=== PATIENT | male | born 1945 | race Two or more races ===

== ENCOUNTER → 2022-04-24 | Outpatient (CLI) | payer MEDICARE, OTHER ==
[2022-04-24 09:33] LABS: Albumin 4.3 g/dL (3.4-5.0); Calcium 9.3 mg/dL (8.5-10.1); Potassium 4.1 mmol/L (3.5-5.1)
[2022-04-24 09:34] LABS: Urine Blood Negative /uL (Negative); Urine Specific Gravity 1.015 (1.001-1.035)
[2022-04-24 09:38] LABS: BUN/Creatinine Ratio 12.1; Bilirubin, Total 0.5 mg/dL (0.2-1.0); Total Protein 7.6 g/dL (6.4-8.2)
[2022-04-24 09:41] LABS: Basophils # (auto) 0 10 ^3/uL (0-0.2); Basophils % (auto) 0.5 % (0.0-2.0); Eosinophils # (auto) 0.2 10 ^3/uL (0-0.8); Eosinophils % (auto) 1.9 % (0.0-7.0); Hematocrit 41.2 % (41.0-53.0); Hemoglobin 13.8 g/dL (13.5-17.5); Lymphocytes # (auto) 1.8 10 ^3/uL (0.4-5.4); Lymphocytes % (auto) 17.9 % (10.0-50.0); Mean Corpuscular Hemoglobin 32.1 pg (28.0-32.0); Mean Corpuscular Hgb Conc. 33.4 g/dL (32.0-36.0); Mean Corpuscular Volume 95.9 fL (80.0-100.0); Monocytes # (auto) 0.6 10 ^3/uL (0-1.3); Monocytes % (auto) 5.6 % (0.0-12.0); Neutrophils # (auto) 7.3 10 ^3/uL (1.6-8.6); Neutrophils % (auto) 74.1 % (37.0-80.0); Red Cell Distribution Width 14.8 % (11.8-14.3); White Blood Cell 9.8 10^3/uL (4.4-10.8)
[2022-04-24 09:57] LABS: Free T4 (Free Thyroxine) 0.9 ng/dL (0.89-1.76); Prostate Specific Antigen 3.02 ng/mL (0.0-4.0)
== END | disposition home or self-care (01) ==
LOC: LAB 08:11
PROVIDERS: ATTEND Internal Medicine Cardiovascular Disease
DX: C61 Malignant neoplasm of prostate (principal); I10 Essential (primary) hypertension; D51.3 Other dietary vitamin B12 deficiency anemia; E55.9 Vitamin D deficiency, unspecified; E11.9 Type 2 diabetes mellitus without complications; R00.2 Palpitations; D64.9 Anemia, unspecified; R53.1 Weakness; R30.0 Dysuria
CPT/HCPCS: 36415; 80053; 80061; 81003; 82306; 82607; 83036; 84153; 84403; 84439; 84443; 85025

== ENCOUNTER → 2022-04-28 | Outpatient (CLI) | payer MEDICARE, OTHER ==
[~2022-04-28] VITALS: Ht 172.7 cm; Wt 108.9 kg
== END | disposition home or self-care (01) ==
LOC: Rad HDHVI 08:17
PROVIDERS: ATTEND Internal Medicine Cardiovascular Disease
DX: I11.0 Hypertensive heart disease with heart failure (principal); I50.9 Heart failure, unspecified; R07.9 Chest pain, unspecified; R06.02 Shortness of breath
CPT/HCPCS: 78452; 93017; 96374; A9500

== ENCOUNTER → 2022-04-30 | Outpatient (CLI) | payer MEDICARE, OTHER | END | disposition home or self-care (01) | LOC: Rad HDHVI 12:54 | PROVIDERS: ATTEND Internal Medicine Cardiovascular Disease | DX: I08.2 Rheumatic disorders of both aortic and tricuspid valves (principal); I50.9 Heart failure, unspecified | CPT/HCPCS: 93306 ==

== ENCOUNTER → 2022-06-15 | Outpatient (CLI) | payer MEDICARE, OTHER ==
[~2022-06-15] MED LIST: AMLO-489 PO; LOSA-39 PO; POTA10TA51 PO; TORS20TA20 PO
[2022-06-15 11:00] VITALS: BP 166/77
[2022-06-15 11:30] VITALS: BP 159/85
== END | disposition home or self-care (01) ==
LOC: Rad HDHVI 10:38
PROVIDERS: ATTEND Internal Medicine Cardiovascular Disease
DX: Z01.818 Encounter for other preprocedural examination (principal); R07.9 Chest pain, unspecified
CPT/HCPCS: 71046; 93005; G0463

== ENCOUNTER 2022-06-18 07:08 | Day surgery (SDC) | payer MEDICARE, OTHER ==
[2022-06-15 13:15] LABS: Basophils # (auto) 0.1 10 ^3/uL (0-0.2); Basophils % (auto) 0.7 % (0.0-2.0); Eosinophils # (auto) 0.2 10 ^3/uL (0-0.8); Hematocrit 40.5 % (41.0-53.0); Hemoglobin 13.5 g/dL (13.5-17.5); Lymphocytes # (auto) 2.4 10 ^3/uL (0.4-5.4); Lymphocytes % (auto) 24.2 % (10.0-50.0); Mean Corpuscular Hemoglobin 31.9 pg (28.0-32.0); Mean Corpuscular Hgb Conc. 33.4 g/dL (32.0-36.0); Mean Corpuscular Volume 95.7 fL (80.0-100.0); Monocytes # (auto) 0.7 10 ^3/uL (0-1.3); Monocytes % (auto) 7.3 % (0.0-12.0); Neutrophils # (auto) 6.6 10 ^3/uL (1.6-8.6); Neutrophils % (auto) 65.8 % (37.0-80.0); Nucleated Red Blood Cells % 0.3 %; Red Blood Cells 4.23 10^6/uL (4.5-5.90); Red Cell Distribution Width 14.7 % (11.8-14.3)
[2022-06-15 13:32] LABS: INR 1.07 (0.9-1.15); Partial Thromboplastin Time 25.9 sec (24.6-33.4)
[2022-06-15 13:43] LABS: Potassium 4.3 mmol/L (3.5-5.1)
[2022-06-15 13:47] LABS: BUN/Creatinine Ratio 9.2 (10.0-20.0); Calcium 9.3 mg/dL (8.5-10.1)
[2022-06-18] VITALS (8 sets, daily range): BP systolic 120–160; BP diastolic 66–94
[~2022-06-18] VITALS: Ht 172.7 cm; Wt 117.9 kg
[2022-06-18] MEDS ORDERED: fentaNYL CITRATE 100 MCG/2 ML VL ONE (13:23)
[2022-06-18] MEDS ORDERED: ANGIOMAX 250 MG VIAL IV ONE (13:23)
[2022-06-18] MEDS ORDERED: SODIUM CHL 0.9% 0 ML ONE (13:24)
[2022-06-18] MEDS ORDERED: MIDAZOLAM HCL 2MG/2ML 2ml VIAL (1mg/ml) ONE (13:24)
[2022-06-18] MEDS ORDERED: LIDOCAINE 2%HCL (LOCAL ANESTH.) INJ 10ml MDV ONE (13:24)
[2022-06-18] MEDS ORDERED: IOHEXOL 350 MG/ML 100ML IJ ONE (13:38)
[2022-06-18] MEDS ORDERED: ATROPINE SULF 1 MG/10ml SYR ONE (14:09)
[2022-06-18] MEDS ORDERED: NITROGLYCERIN 0.4MG/DOSE SPRAY 4.9GM ONE (14:12)
[2022-06-18] MEDS ORDERED: SODIUM CHLORIDE 0.9% 1,000 ML IV SCH (14:45)
[2022-06-18] MEDS ORDERED: TICAGRELOR 60 MG TAB PO SCH (22:00)
[2022-06-19] MEDS ORDERED: ISOSORBIDE MONONITRATE ER 60 MG TAB PO SCH (10:00)
== END 2022-06-18 16:45 | disposition home or self-care (01) ==
LOC: CATH 07:08
PROVIDERS: ATTEND Internal Medicine Cardiovascular Disease
DX: I25.10 Atherosclerotic heart disease of native coronary artery without angina pectoris (principal); R94.39 Abnormal result of other cardiovascular function study; I10 Essential (primary) hypertension; E78.5 Hyperlipidemia, unspecified; E66.01 Morbid (severe) obesity due to excess calories; Z98.890 Other specified postprocedural states; Z79.899 Other long term (current) drug therapy; Z20.822 Contact with and (suspected) exposure to COVID-19
CPT/HCPCS: 36415; 80048; 85025; 85610; 85730; 93458; C1894; J1644; J2001; J2250; J3010; Q9967; U0003

== ENCOUNTER → 2022-07-01 | Outpatient (CLI) | payer MEDICARE, OTHER | END | disposition home or self-care (01) | LOC: Rad HDHVI 13:51 | PROVIDERS: ATTEND Internal Medicine Cardiovascular Disease | DX: I65.22 Occlusion and stenosis of left carotid artery (principal); I10 Essential (primary) hypertension | CPT/HCPCS: 93880 ==

== ENCOUNTER → 2022-08-26 | Outpatient (CLI) | payer MEDICARE, OTHER ==
[~2022-08-26] MED LIST changes: -AMLO-489 PO; +AMLO1TAB22 PO; -LOSA-39 PO; +LOSA100T58 PO
== END | disposition home or self-care (01) ==
LOC: Rad HDHVI 08:58
PROVIDERS: ATTEND Internal Medicine Cardiovascular Disease
DX: I35.8 Other nonrheumatic aortic valve disorders (principal); R00.2 Palpitations; I10 Essential (primary) hypertension
CPT/HCPCS: 93306

== ENCOUNTER → 2024-06-12 | Outpatient (CLI) | payer MEDICARE, OTHER ==
[~2024-06-12] MED LIST changes: +AMIO200T33 PO; +B-COTAB19 PO; +BUME1TAB3 PO; +CHOL100079 OR; +CLOP75TA70 PO; +ISOS1TAB28 PO; +LOSA-535 PO; -LOSA100T58 PO; +POM PO; +POTA-36 PO; -POTA10TA51 PO; +VERI2.5T PO
[2024-06-12 10:06] VITALS: BP 119/72; PULSE 68; RESP 18; O2SAT 95
[2024-06-12 10:31] VITALS: BP 122/69; PULSE 66; RESP 18; O2SAT 95
--- NOTE | 2024-06-12 12:26 | DVH ---
XY CHEST TWO VIEWS ROUTINE, HISTORY: PRE OP COMPARISON: XY CHEST TWO VIEWS ROUTINE on DOS: 06/15/22 XY CHEST TWO VIEWS ROUTINE on DOS: 06/15/22 TECHNICAL DATA: 2 view of the chest was obtained. FINDINGS: Lines and tubes: None Cardiomediastinal silhouette: normal Pulmonary vasculature: normal Lung expansion: normal Lung airspace: normal Lung interstitium: normal Pleura: normal Pneumothorax: no Bones: Unremarkable Other: no IMPRESSION: No acute intrathoracic abnormality.
== END | disposition home or self-care (01) ==
LOC: Rad HDHVI 10:00
PROVIDERS: ATTEND Internal Medicine Cardiovascular Disease
DX: Z01.818 Encounter for other preprocedural examination (principal); I45.10 Unspecified right bundle-branch block; I73.9 Peripheral vascular disease, unspecified
CPT/HCPCS: 71046; 93005; G0463

== ENCOUNTER → 2024-06-12 | Outpatient (CLI) | payer MEDICARE, OTHER ==
[2024-06-12 12:44] LABS: Basophils # (auto) 0.1 10 ^3/uL (0-0.2); Eosinophils # (auto) 0 10 ^3/uL (0-0.8); Eosinophils % (auto) 0.4 % (0.0-7.0); Hemoglobin 13.7 g/dL (13.5-17.5); Lymphocytes # (auto) 1.3 10 ^3/uL (0.4-5.4); Mean Corpuscular Hgb Conc. 34.4 g/dL (32.0-36.0); Neutrophils # (auto) 7.3 10 ^3/uL (1.6-8.6); Nucleated Red Blood Cells % 0.2 %; White Blood Cell 9.3 10^3/uL (4.4-10.8)
[2024-06-12 12:46] LABS: Basophils % (auto) 0.8 % (0.0-2.0); Hematocrit 39.9 % (41.0-53.0); Lymphocytes % (auto) 13.8 % (10.0-50.0); Mean Corpuscular Hemoglobin 34.7 pg (28.0-32.0); Mean Corpuscular Volume 100.9 fL (80.0-100.0); Monocytes # (auto) 0.6 10 ^3/uL (0-1.3); Monocytes % (auto) 6.5 % (0.0-12.0); Neutrophils % (auto) 78.5 % (37.0-80.0); Platelet Count (auto) 275 10^3/uL (140-450); Red Blood Cells 3.95 10^6/uL (4.5-5.90); Red Cell Distribution Width 16.5 % (11.8-14.3)
[2024-06-12 12:55] LABS: Potassium 3.6 mmol/L (3.5-5.1); Sodium 139 mmol/L (136-145)
[2024-06-12 12:56] LABS: Anion Gap 11 (5-15); Carbon Dioxide 21 mmol/L (20-31)
[2024-06-12 12:57] LABS: Calcium 9.6 mg/dL (8.7-10.4)
[2024-06-12 13:01] LABS: INR 1.07 (0.9-1.15); Partial Thromboplastin Time 24.6 SEC (24.5-34.5); Prothrombin Time 11.3 sec (9.3-11.8)
[2024-06-12 13:02] LABS: BUN/Creatinine Ratio 9.4 (10.0-20.0); Blood Urea Nitrogen 19 mg/dL (9-23)
[2024-06-12 13:03] LABS: Chloride 107 mmol/L (98-107); Glucose 129 mg/dL (74-106)
== END | disposition home or self-care (01) ==
LOC: LAB 12:14
PROVIDERS: ATTEND Internal Medicine Cardiovascular Disease
DX: Z01.812 Encounter for preprocedural laboratory examination (principal); R79.1 Abnormal coagulation profile
CPT/HCPCS: 36415; 80048; 85025; 85610; 85730

== ENCOUNTER 2024-06-15 06:57 | Day surgery (SDC) | payer MEDICARE, OTHER ==
[2024-06-15] VITALS (7 sets, daily range): BP systolic 122–147; BP diastolic 54–71; PULSE 47–51; RESP 12–14; TEMP 98.1; O2SAT 95–98
[~2024-06-15] VITALS: Ht 172.7 cm; Wt 98.0 kg
[~2024-06-15 06:57] MED LIST changes: -AMLO1TAB22 PO; -LOSA-535 PO; -POTA-36 PO; -TORS20TA20 PO
[2024-06-15] MEDS ORDERED: HEPARIN IN NS 1000Units/500mL 1,500 ML ONE (07:23)
[2024-06-15] MEDS ORDERED: IOHEXOL 350 MG/ML 100ML IJ ONE (07:24)
[2024-06-15] MEDS ORDERED: ANGIOMAX 250 MG VIAL IV ONE (07:53)
[2024-06-15] MEDS ORDERED: fentaNYL CITRATE 100 MCG/2 ML VL ONE (07:54)
[2024-06-15] MEDS ORDERED: SODIUM CHL 0.9% 0 ML ONE (07:54)
[2024-06-15] MEDS ORDERED: MIDAZOLAM HCL 2MG/2ML 2ml VIAL (1mg/ml) ONE (07:54)
[2024-06-15] MEDS ORDERED: LIDOCAINE 2%HCL (LOCAL ANESTH.) INJ 20ML MDV ONE (07:55)
[2024-06-15] MEDS ORDERED: IODIXANOL 320MG/ML 100ML BTL IV ONE (08:56)
--- NOTE | 2024-06-15 09:11 | DVHOP ---
DATE OF SURGERY: 06/15/2024 PROCEDURES PERFORMED: Selective left and right lower extremity angiography. Conscious sedation. INDICATIONS: The patient with claudication symptoms affecting his left leg more so than the right leg. The patient is now to undergo bilateral lower extremity angiography. Risks and benefits were explained to the patient. DESCRIPTION OF PROCEDURE: The patient was prepped and draped in a sterile condition. Then, 1% Xylocaine was used to anesthetize the right groin. Using a Cook needle, right femoral artery was engaged with Seldinger technique, a 6-Mauritian sheath in the right femoral artery. Using 6-Mauritian sheath, angiography of right lower extremity was performed. Then, using the contralateral approach, using a RIM catheter and angled Terumo wire, we got into the left lower extremity. Angiography of left lower extremity was performed. Catheter was placed in the distal left popliteal for evaluation of tibioperoneal trunk of the left lower extremity. There were no complications. The patient tolerated the procedure well. Visipaque was used because creatinine was elevated. Volume hydration was given. Total contrast used was 30 mL of Visipaque. RESULTS: * Left and right iliac without any flow restrictive lesion. * Left and right common femoral without any flow restrictive lesion. * Left and right profunda without flow restrictive lesion. * Left and right superficial femoral, popliteal without any flow restrictive lesion. * Left and right tibioperoneal trunk, including the anterior tibial, posterior tibial and the peroneal arteries were all patent, with small vessel disease, sluggish flow throughout. Otherwise, no restrictive lesions were noted. At this time, conservative medical management should be implemented. The patient may benefit from anticoagulation and antiplatelet agent because of slow flow phenomena and also a vasodilatory meds such as Verquvo may also be helpful. Tyler Carbajal MD [facility] TID: [id number] RECEIPT: [id number]
--- NOTE | 2024-06-15 09:15 | DVHHP ---
ADMIT DATE: 06/15/2024 HISTORY OF PRESENT ILLNESS: The patient who is 79 years old with: * History of organic heart disease. A. Hypertension B. Coronary artery disease. C. The patient with history of atrial fibrillation, hypercoagulable state, currently on amiodarone. * D. Anticoagulation because of hypercoagulable state. * Severe osteoarthritis, with multiple joint replacement. * Hypertension. * Hyperlipidemia. The patient at this time with claudication symptoms, now scheduled to undergo lower extremity angiography. Risks and benefits were explained to the patient. The patient understands and agrees. The patient denies any fever or chills, melena, hematochezia, hematemesis, hemoptysis, hematuria. No bleeding diathesis. The patient denies any recent trauma. No fever. Denies any inflammatory bowel disease or irritable bowel syndrome. Denies any history of rheumatologic disorder such as rheumatoid arthritis, lupus or any other connective tissue disease. Denies any diarrhea. No constipation at this time. No history of inflammatory bowel disease or irritable bowel syndrome. PHYSICAL EXAMINATION: VITAL SIGNS: Blood pressure is 122/84, pulse of 60 and regular, O2 saturation 98%. HEENT: Pupils are reactive. Funduscopic exam shows no AV nicking, no exudates, no papilledema. Sclerae are anicteric. NECK: No JVD appreciated. Carotid pulses are 2+ symmetrical. PULMONARY: Clear to auscultation. CARDIOVASCULAR: Regular rate without S3, without S4. PMI is not displaced. ABDOMEN: Soft, nontender, normal bowel sounds. SKIN: Unremarkable. EXTREMITIES: Unremarkable except for diminished bilaterally Doppler pulses. ASSESSMENT AND PLAN: The patient is now scheduled to undergo lower extremity angiography. We will make further recommendations after the angiogram. Furthermore, the patient has renal insufficiency, stage III renal failure. IV fluid hydration. Minimal dye will be used. The patient will receive Visipaque. Tyler Carbajal MD [facility] TID: [id number] RECEIPT: [id number]
--- NOTE | 2024-06-15 09:16 | DVHDS ---
DATE OF DISCHARGE: 06/15/2024 DISCHARGE DIAGNOSES: The patient with claudication symptoms. Peripheral angiography failed to show any restrictive lesions noted in both lower extremities. HOSPITAL COURSE: The patient had patent flow throughout. However, the patient's flow was very sluggish, consistent with small vessel disease and large caliber nature of the vessel. At this time, vasodilatory meds may be helpful in this patient in terms of claudication symptoms. The patient with small vessel disease and furthermore the patient may have endothelial dysfunction. Antiplatelet therapy may also be beneficial. We will continue to follow the patient. Stable at the time of discharge. DISPOSITION: Home. ACTIVITY: As instructed. DIET: Will be 2 gram sodium diet. Tyler Carbajal MD [facility] TID: [id number] RECEIPT: [id number]
[2024-06-15] MEDS ORDERED: SODIUM CHLORIDE 0.9% 1,000 ML IV SCH (10:15)
== END 2024-06-15 11:14 | disposition home or self-care (01) ==
LOC: CATH 06:57
PROVIDERS: ATTEND Internal Medicine Cardiovascular Disease
DX: I70.223 Atherosclerosis of native arteries of extremities with rest pain, bilateral legs (principal); I25.10 Atherosclerotic heart disease of native coronary artery without angina pectoris; I48.91 Unspecified atrial fibrillation; I12.9 Hypertensive chronic kidney disease with stage 1 through stage 4 chronic kidney disease, or unspecified chronic kidney disease; N18.30 Chronic kidney disease, stage 3 unspecified; E78.5 Hyperlipidemia, unspecified; M19.90 Unspecified osteoarthritis, unspecified site; Z79.899 Other long term (current) drug therapy; Z79.01 Long term (current) use of anticoagulants
CPT/HCPCS: 36246; 75716; C1760; C1769; C1887; C1894; J1644; J2250; J3010; J7030; Q9967; 99152

== ENCOUNTER → 2024-12-13 | Outpatient (CLI) | payer MEDICARE, OTHER ==
--- NOTE | 2024-12-14 08:30 | DVHSR ---
APPROVED REPORT EXAM: Two-dimensional and M-mode echocardiogram with Doppler and color Doppler. Surgery/Intervention CABG: RISK FACTORS Obesity: DIMENSIONS LVDd4.3 (3.8-5.7cm)LA (2D)3.9 (1.9-4.0cm)Aortic Root3.3 (2.0-3.7cm) LVDs2.7 (2.5-4.0cm)LA (MM) (1.9-4.0cm)Aortic Cusp Exc0.9 (1.5-2.0cm) EF (%) 54.0 (55-70%)Rt. Atrium (1.9-4.0cm)Asc. Aorta cm IVSd1.1 (0.7-1.1cm)RV (D) (1.8-2.4cm) PWd1.3 (0.7-1.1cm) Mitral Valve MitralMitral Stenosis E wave0.26m/sMV Mean GR.mmHg A wave0.51m/sMV Peak GR.mmHg E/A ratio0.52D MVAcm2 DECEL [id number] 1/2 Timems Aortic Valve Aortic ValveAortic Stenosis V10.93m/Joel Mean GR.16mmHg V22.63m/Joel Peak GR.27mmHg LVOT Diameter1.9 (1.8-2.4cm)Doppler AVA1.00cm2 AI P 1/2 Rfai931.67ms Tricuspid Valve TR Velocity2.36m/s [id number] LEFT VENTRICLE The Left Ventricle is mildly dilated. The Ejection Fraction is within normal limits. 50-55%. RIGHT VENTRICLE The right ventricle is normal size. ATRIA The left atrial size is normal. The right atrium size is normal. MITRAL VALVE The mitral valve is normal in structure and function. PULMONIC VALVE The pulmonic valve is not well visualized. TRICUSPID VALVE The tricuspid valve is grossly normal. There is mild tricuspid regurgitation. AORTIC VALVE The aortic valve is moderatelycalcified. There is mild aortic regurgitation. There is moderate to severe valvular aortic stenosis. GREAT VESSELS The aortic root is normal size. PERICARDIAL EFFUSION There is no pericardial effusion. Other Information Technically limited study due to body habitus.CABG. Conclusion MOD AV STENOSIS AV CALCIFICATION EF 45% MILD AI MILD TR
== END | disposition home or self-care (01) ==
LOC: Rad HDHVI 09:48
PROVIDERS: ATTEND Internal Medicine Cardiovascular Disease
DX: I08.2 Rheumatic disorders of both aortic and tricuspid valves (principal); I73.9 Peripheral vascular disease, unspecified; I11.9 Hypertensive heart disease without heart failure; Z95.1 Presence of aortocoronary bypass graft
CPT/HCPCS: 93306

== ENCOUNTER 2025-01-03 08:15 | Outpatient (CLI) | payer MEDICARE, OTHER ==
[~2025-01-03] VITALS: Ht 172.7 cm; Wt 88.5 kg
[2025-01-03] MEDS ORDERED: ADENOSINE 90 MG/30 ML INJ IV ONE (09:04)
[2025-01-03] MEDS ORDERED: ADENOSINE 74 MG in GIVE UN-DILUTED 0 ML IV ONE (10:00)
== END 2025-01-03 17:00 | disposition home or self-care (01) ==
LOC: Rad HDHVI 08:15
PROVIDERS: ATTEND Internal Medicine Cardiovascular Disease
DX: I44.0 Atrioventricular block, first degree (principal); I49.1 Atrial premature depolarization; I11.0 Hypertensive heart disease with heart failure; I50.43 Acute on chronic combined systolic (congestive) and diastolic (congestive) heart failure; I25.5 Ischemic cardiomyopathy; I25.10 Atherosclerotic heart disease of native coronary artery without angina pectoris; E78.00 Pure hypercholesterolemia, unspecified; Z95.1 Presence of aortocoronary bypass graft; Z86.79 Personal history of other diseases of the circulatory system
CPT/HCPCS: 78452; 93017; A9500; J0153